=== PATIENT | male | born 1990 | race Hispanic/Latino ===

== ENCOUNTER 2017-07-24 14:05 | Emergency (ER) | payer SELFPAY ==
[2017-07-24] MEDS ORDERED: CEFTRIAXONE SODIUM 500 MG VIAL ONE (15:55)
[2017-07-24] MEDS ORDERED: AZITHROMYCIN 250 MG TABLET PO ONE (15:56)
[2017-07-24 15:57] LABS: APPEARANCE,URINE Clear (CLEAR); BILIRUBIN,URINE Negative (NEGATIVE); COLOR,URINE Yellow (YELLOW); GLUCOSE, URINE (UA) Negative (NEGATIVE); KETONES,URINE 15 mg/dL (NEGATIVE); LEUKOCYTE ESTERASE ,URINE Negative (NEGATIVE); NITRATE,URINE Negative (NEGATIVE); OCCULT BLOOD,URINE Negative (NEGATIVE); PROTEIN,URINE Negative (NEGATIVE); UROBILINOGEN,URINE 0.2 mg/dL (0.2-1.0)
== END 2017-07-24 16:38 | disposition home or self-care (01) ==
LOC: EDH 14:05
DX: Z11.3 Encounter for screening for infections with a predominantly sexual mode of transmission (principal); R30.0 Dysuria
CPT/HCPCS: 81003; 87486; 87797; 96372; 99284; J0696